=== PATIENT | female | born 1980 | race Caucasian/White ===

== ENCOUNTER → 2017-11-09 | Outpatient (CLI) | payer BC ==
[~2017-11-09] MED LIST: CEF300 PO; CETI10CA8 PO; FLUT16SP19 NS; MONT10TA PO
== END ==
LOC: AUD 10:10
PROVIDERS: ATTEND Otolaryngology
DX: H69.80 Other specified disorders of Eustachian tube, unspecified ear (principal); Z96.22 Myringotomy tube(s) status
CPT/HCPCS: 92567